=== PATIENT | male | born 1950 | race Caucasian/White ===

== ENCOUNTER 2017-03-31 23:06 | Inpatient (IN) | payer MEDICARE ==
[~2017-03-31] VITALS: Ht 172.7 cm; Wt 61.8 kg
[~2017-03-31 23:06] MED LIST: ALBU2.5V13 NEB; ALPR0.25 PO; ATOR40TA PO; Acetaminophen PO; CARV3.12 PO; CLOP75TA33 PO; Docusate Sodium PO; FURO-152 PO; IPRA0.2S6 NEB; Isosorbide Mononitrate PO; LEVO500T2 PO; LISI2.5T2 PO; METH4TAB21 PO; MULT1TAB73 PO; PANT40TA2 PO
--- NOTE | 2017-03-31 23:20 | NUR ---
Patient brought in by RA from home for c/o CP x4 days radiating left arm. Had 2 spray of nitro on the field. Came with 20G Hep Lock right forearm. Pt is alert, oriented x 3, no resp distress noted or reported upon assessment... MD at bedside...
[2017-03-31] MEDS ORDERED: NITROGLYCERIN OINT 1 GM PACKET TP ONE ×2 (23:30→23:33)
[2017-03-31 23:37] LABS: BASOPHILS % (AUTO) 0.8 % (0.0-2.0); EOSINOPHILS # (AUTO) 0.1 K/uL (0.0-0.7); EOSINOPHILS % (AUTO) 2.8 % (0.0-7.0); HEMATOCRIT 34.4 % (40-50); HEMOGLOBIN 11.1 G/DL (14.0-18.0); LYMPHOCYTES # (AUTO) 1.1 K/UL (0.8-4.8); MEAN CORPUSCULAR HEMOGLOBIN 26.4 UUG (27.0-31.0); MEAN CORPUSCULAR HGB CONC 32 g/dL (32.0-37.0); MEAN CORPUSCULAR VOLUME 81.6 FL (82.0-92.0); MONOCYTES # (AUTO) 0.4 K/UL (0.1-1.30); NEUTROPHILS % (AUTO) 62.4 % (38.5-71.5); PLATELET COUNT (AUTO) 132 K/UL (150-450); RED BLOOD CELL COUNT(AUTO) 4.21 MIL/UL (4.7-6.1); WHITE BLOOD COUNT (AUTO) 4.6 K/UL (4.0-11.2)
[2017-03-31] MEDS ORDERED: MORPHINE SULFATE 4 MG/1 ML DISP.SYRIN IV ONE (23:45)
[2017-03-31] MEDS ORDERED: ONDANSETRON IV *ER 4 MG/2 ML VIAL IV ONE (23:45)
[2017-03-31] MEDS ORDERED: ONDANSETRON 4 MG/2 ML VIAL ONE (23:47)
[2017-03-31] MEDS ORDERED: MORPHINE SULFATE 10 MG/1 ML DISP.SYRIN ONE (23:48)
[2017-03-31 23:55] LABS: BILIRUBIN,DIRECT 0.1 mg/dL (0.0-0.2); BILIRUBIN,TOTAL 0.3 mg/dL (0.2-1.0)
[2017-04-01] MEDS ORDERED: OXYC30TA2 PO (00:20)
--- NOTE | 2017-04-01 00:25 | NUR ---
received call from [facility], spoke with miter operator Nidia who stats new MD newspaper subscription solicitor is Dr. Aiden Dougherty, miter operator states will have MD Dougherty paged...
[2017-04-01] MEDS ORDERED: ALBUTEROL SULFATE 2.5 MG/ 0.5 ML NEBU NEB PRN (01:00)
[2017-04-01] MEDS ORDERED: IPRATROPIUM BROMIDE 0.5 MG/2.5 ML NEBU NEB PRN (01:00)
--- NOTE | 2017-04-01 01:00 | NUR ---
CALLED DR LOAN OLSON WAS INSTRUCTED TO CALL [facility] TO ADMIT PATIENT
--- NOTE | 2017-04-01 01:10 | NUR ---
Pt. admitted to Telemetry , under care of Dr. Aiden Dougherty, Belongs List completed, pt alert, oriented x 3, no resp distress noted or reported upon transfer assessment...
--- NOTE | 2017-04-01 01:22 | NUR ---
RECEIVED PATIENT VIA WHEELCHAIR FROM ED. USHERED TO ROOM AND PLACED COMFORTABLY IN THE BED. PATIENT IS ALERT AND ORIENTED X'S 4. ABLE TO MAKE NEEDS KNOWN. ABLE TO PROVIDE HISTORY. HEAD TO TOE ASSESSMENT DONE. PATIENT WAS PUT ON O2 4L NC. SAFETY INITIATED. CALL LIGHT WITHIN REACH. ALL NEEDS ATTENDED. ADMISSION PROTOCOL FOLLOWED. INSTRUCTED HOE TO USE CALL LIGHT WHEN IN NEED OF ASSISTANCE. WILL CONTINUE TO MONITOR.
[2017-04-01 01:52] VITALS: BP 127/69
[2017-04-01] MEDS ORDERED: OXYCODONE HCL 5 MG TABLET ONE (03:39)
[2017-04-01 04:00] VITALS: BP 131/68
[2017-04-01] MEDS ORDERED: OXYCODONE HCL 5 MG TABLET PO SCH (04:00)
--- NOTE | 2017-04-01 07:10 | NUR ---
PATIENT SLEPT INTERMITTENTLY T/O SHIFT. COMPLAINED OF PAIN, GAVE MEDICATION ORDERED, STATED RELIEF. NO ACUTE DISTRESS NOTED. SAFETY AND COMFORT MAINTAINED T/O SHIFT. CALL LIGHT WITHIN REACH. ALL NEEDS MET. PATIENT IS ON O2 4L NC.
[2017-04-01] MEDS: CARVEDILOL 3.125 MG TABLET PO SCH ×2 (08:51→17:45)
[2017-04-01] MEDS ORDERED: MULTIVITAMINS,THERAPEUTIC TABLET PO SCH (09:00)
[2017-04-01] MEDS ORDERED: LISINOPRIL 10 MG TABLET PO SCH (09:00)
[2017-04-01] MEDS ORDERED: OXYCODONE HCL 5 MG TABLET PO ONE (09:00)
[2017-04-01] MEDS ORDERED: LISINOPRIL 5 MG TABLET PO SCH (09:00)
[2017-04-01] MEDS ORDERED: CLOPIDOGREL 75 MG TABLET PO SCH (09:00)
[2017-04-01] MEDS ORDERED: OXYCODONE HCL 5 MG TABLET PO PRN (10:00)
[2017-04-01 10:42] LABS: BILIRUBIN,TOTAL 0.4 mg/dL (0.2-1.0); CREATININE 0.9 mg/dL (0.6-1.3); MAGNESIUM 2.1 mg/dL (1.8-2.4); PHOSPHOROUS 4.4 mg/dL (2.5-4.9); POTASSIUM 3.8 mmol/L (3.5-5.1); TOTAL PROTEIN, SERUM 6.9 g/dL (6.4-8.2)
[2017-04-01 10:58] LABS: BASOPHILS % (AUTO) 0.1 % (0.0-2.0); EOSINOPHILS # (AUTO) 0.1 K/uL (0.0-0.7); EOSINOPHILS % (AUTO) 2.4 % (0.0-7.0); HEMATOCRIT 34.5 % (40-50); HEMOGLOBIN 11.2 G/DL (14.0-18.0); LYMPHOCYTES # (AUTO) 0.9 K/UL (0.8-4.8); LYMPHOCYTES % (AUTO) 15.2 % (20.5-51.5); MEAN CORPUSCULAR HEMOGLOBIN 26.6 UUG (27.0-31.0); MEAN CORPUSCULAR HGB CONC 32 g/dL (32.0-37.0); MONOCYTES # (AUTO) 0.3 K/UL (0.1-1.30); MONOCYTES % (AUTO) 4.6 % (0.0-11.0); NEUTROPHILS # (AUTO) 4.6 K/UL (1.8-8.9); NEUTROPHILS % (AUTO) 77.7 % (38.5-71.5); PLATELET COUNT (AUTO) 122 K/UL (150-450); RED BLOOD CELL COUNT(AUTO) 4.21 MIL/UL (4.7-6.1); WHITE BLOOD COUNT (AUTO) 5.9 K/UL (4.0-11.2)
--- NOTE | 2017-04-01 11:09 | NUR ---
PT ON 4LNC THIS AM, SAT 100% TURNED DOWN TO 2LNC DUE TO COPD HISTORY. PT STATED HE UNDERSTANDS, CHARGE NURSE IN ROOM AT TIME AND ALSO EXPLAINED TO PT. PT VERBALIZED UNDERSTANDING. UPON ENTRY OF ROOM TO GIVE MEDICATIONS O2 WAS TUNED UP TO 10L. I ASKED PATIENT WHO TURNED IT UP SO HIGH, PT STATED "THAT OTHER LADY" I TURNED BACK DOWN TO 2LN. I ASKED SALES UTILITY REPRESENTATIVE IF SHE HAD TURNED IT UP AND SHE DID NOT. SALES UTILITY REPRESENTATIVE ENTERED ROOM FOR 10 O CLOCK VITALS AND O2 WAS UP TO 4 AGAIN. I EXPLAINED TO PT THE IMPORTANCE OF OXYGEN AND THAT PT SHOULD NOT BE ADJUSTING BUT PT IS STATING HE IS NOT TURNING IT UP. WILL CONTINUE TO KEEP MONITORING
[2017-04-01 11:29] VITALS: BP 106/62
[2017-04-01] MEDS ORDERED: MORPHINE SULFATE 2 MG/1 ML DISP.SYRIN IV PRN (11:45)
[2017-04-01] MEDS: MORPHINE SULFATE 4 MG/1 ML DISP.SYRIN IV PRN ×2 (12:32→18:33)
[2017-04-01] MEDS ORDERED: MAGNESIUM HYDROXIDE 30 ML LIQUID UDC PO ONE (14:15)
[2017-04-01] MEDS ORDERED: MAGNESIUM HYDROXIDE 30 ML LIQUID UDC PO PRN (14:15)
[2017-04-01 14:18] LABS: *BILIRUBIN,URIN NEGATIVE (NEGATIVE); *BLOOD, URINE NEGATIVE (NEGATIVE); *CLARITY,URINE CLEAR (CLEAR); *COLOR,URINE YELLOW (YELLOW); *KETONES,URINE NEGATIVE (NEGATIVE); *PROTEIN,URINE NEGATIVE (NEGATIVE); *UROBILINOGEN,URINE 0.2 E.U./dl (NORMAL); LEUKOCYTE ESTERASE ,URINE NEGATIVE (NEGATIVE); NITRITE, URINE NEGATIVE (NEGATIVE); UGLUCOSE NEGATIVE (NEGATIVE)
[2017-04-01 14:26] LABS: BACTERIA,URINE FEW /HPF (NONE SEEN); RBC,URINE 0-3 /HPF (0-3); SQUAMOUS EPITHELIAL CELL,UR FEW /HPF (NONE SEEN); WBC,URINE 0-3 /HPF (0-3)
[2017-04-01 14:27] LABS: MUCUS,URINE FEW /LPF (0-FEW)
[2017-04-01 15:44] VITALS: BP 120/61
[2017-04-01] MEDS ORDERED: DOCUSATE SODIUM 100 MG CAPSULE PO SCH (17:00)
[2017-04-01 17:45] VITALS: BP 120/60
--- NOTE | 2017-04-01 18:44 | NUR ---
DISCHARGE PROTOCOL FOLLOWED, PATIENT REFUSING TO HAVE PICTURES TAKEN HOWEVER PICTURES WERE TAKEN THIS MORNING ON ADMISSION. ALL BELONGINGS ACCOUNTED FOR, DISCHARGE INSTRUCTIONS PROVIDED AND PT VERBALIZED UNDERSTANDING HOWEVER NOT HAPPY ABOUT LEAVING, THROWING PHONE DOWN AND STATING HE DOS NOT HAVE A RIDE. THE BROTHER WAS CALLED AND WAS ASKED TO PICK PT UP, BROTHER SAID HE WOULD BUT WOULD CALL BACK WITH A APPLICATION ANALYST TIME. WILL ENDORSE TO QC TECH CALL LIGHT IN REACH
--- NOTE | 2017-04-01 19:25 | NUR ---
PT TAKEN DOWN VIA WHEELCHAIR AND LEFT IN PRIVATE CAR WITH BROTHER ROXANN
[2017-04-01] MEDS ORDERED: ATORVASTATIN 40 MG TABLET PO SCH (21:00)
== END 2017-04-01 19:15 | disposition home or self-care (01) | DRG 605 ==
LOC: ER 23:09 → TELE 04-01 00:40
PROVIDERS: ADMIT Nurse Practitioner Acute Care; ATTEND Nurse Practitioner Acute Care
DX: S20.219A Contusion of unspecified front wall of thorax, initial encounter (principal); I69.354 Hemiplegia and hemiparesis following cerebral infarction affecting left non-dominant side; I25.110 Atherosclerotic heart disease of native coronary artery with unstable angina pectoris; E44.0 Moderate protein-calorie malnutrition; J98.11 Atelectasis; J90 Pleural effusion, not elsewhere classified; I50.9 Heart failure, unspecified; I10 Essential (primary) hypertension; Z85.118 Personal history of other malignant neoplasm of bronchus and lung; Z95.1 Presence of aortocoronary bypass graft; Z99.81 Dependence on supplemental oxygen; Z82.5 Family history of asthma and other chronic lower respiratory diseases; Z82.49 Family history of ischemic heart disease and other diseases of the circulatory system; Z82.3 Family history of stroke; K59.09 Other constipation; J44.9 Chronic obstructive pulmonary disease, unspecified; Z87.891 Personal history of nicotine dependence; G89.29 Other chronic pain; E78.5 Hyperlipidemia, unspecified; E78.00 Pure hypercholesterolemia, unspecified; D69.6 Thrombocytopenia, unspecified; D50.9 Iron deficiency anemia, unspecified; I25.2 Old myocardial infarction; I70.0 Atherosclerosis of aorta; F32.9 Major depressive disorder, single episode, unspecified; F41.9 Anxiety disorder, unspecified; N40.1 Benign prostatic hyperplasia with lower urinary tract symptoms; R35.0 Frequency of micturition; G47.9 Sleep disorder, unspecified; X58.XXXA Exposure to other specified factors, initial encounter; Y92.009 Unspecified place in unspecified non-institutional (private) residence as the place of occurrence of the external cause; R73.9 Hyperglycemia, unspecified; M47.9 Spondylosis, unspecified; I08.3 Combined rheumatic disorders of mitral, aortic and tricuspid valves; Z87.311 Personal history of (healed) other pathological fracture; J98.4 Other disorders of lung
CPT/HCPCS: 36415; 70030-TC; 71010; 83735; 84100; 84443; 85025; 87086; 93005; A4663; J2270; J2405